=== PATIENT | male | born 1960 | race African-American/Black ===

== ENCOUNTER 2020-02-06 06:56 | Day surgery (SDC) | payer OTHER ==
[2020-02-02 09:32] VITALS: BMI 30.4
[~2020-02-06 06:56] MED LIST: BUPIVICAINE 0.25%/MORPH PF/KETOROLAC - 51ML DISP.SYRINGE IA ONE; GELATIN, ABSORBABLE 100 EACH SPONGE TP ONE; THROMBIN (BOVINE) 5,000 UNIT VIAL TP ONE
[2020-02-06] MEDS ORDERED: CELECOXIB 200 MG CAPSULE PO ONE (08:09)
[2020-02-06] MEDS ORDERED: ceFAZolin SODIUM 1 GM VIAL ONE (08:27)
[2020-02-06] MEDS ORDERED: THROMBIN (RECOMBINANT) 5,000 UNIT VIAL TP ONE (08:27)
[2020-02-06] MEDS ORDERED: MIDAZOLAM HCL 2 MG/2 ML SINGLE DOSE VIAL ONE ×2 (08:29→09:28)
[2020-02-06] MEDS ORDERED: SUCCINYLCHOLINE CHLORIDE 200 MG/10 ML SYRINGE ONE (08:53)
[2020-02-06] MEDS ORDERED: PROPOFOL 20 ML ONE (08:53)
[2020-02-06] MEDS ORDERED: EPHEDRINE SULFATE/0.9% NACL/PF 50 MG/10 ML SYRINGE NR ONE (08:53)
[2020-02-06] MEDS ORDERED: BUPIVACAINE LIPOSOME/PF (EXPAREL) 266 MG/20 ML VIAL ONE (09:15)
[2020-02-06] MEDS ORDERED: SODIUM CHLORIDE 0.9% P/F 10 ML VIAL IJ ONE (09:15)
[2020-02-06] MEDS ORDERED: BUPIVICAINE 0.25%/MORPH PF/KETOROLAC - 51ML DISP.SYRINGE IA ONE ×3 (09:23→10:10)
[2020-02-06] MEDS ORDERED: TRANEXAMIC ACID 1000 MG/10 ML VIAL IVPUSH ONE (09:30)
[2020-02-06] MEDS ORDERED: CEFAZOLIN 2 GM in DEXTROSE 5%-WATER - 50 ML IVPB ONE (09:30)
[2020-02-06] MEDS ORDERED: THROMBIN (BOVINE) 5,000 UNIT VIAL TP ONE (10:03)
[2020-02-06] MEDS ORDERED: GELATIN, ABSORBABLE 100 EACH SPONGE TP ONE (10:03)
[2020-02-06] MEDS ORDERED: MAG HYDROX/AL HYDROX/SIMETH 30 ML UNIT-DOSE CUP PO PRN (10:26)
[2020-02-06] MEDS ORDERED: ONDANSETRON 4 MG/2 ML VIAL IVPUSH PRN ×2 (10:26→10:45)
[2020-02-06] MEDS ORDERED: LACTATED RINGERS SOLUTION 1,000 ML IV SCH (10:30)
[2020-02-06] MEDS ORDERED: ACETAMINOPHEN 325 MG TABLET (FP) PO SCH (10:45)
[2020-02-06] MEDS ORDERED: oxyCODONE HCL 5 MG TABLET PO PRN (10:45)
[2020-02-06] MEDS: oxyCODONE HCL 5 MG TABLET PO PRN ×2 (16:08→22:30)
[2020-02-06] MEDS: CEFAZOLIN 2 GM/D5W 2 GM/50 ML ML IVPB SCH ×2 (16:08→23:39)
[2020-02-06] MEDS: ACETAMINOPHEN 325 MG TABLET (FP) PO SCH ×2 (18:39→23:40)
[2020-02-06] MEDS: oxyCODONE HCL 10 MG SUSTAINED ACTING TABLET PO SCH (21:14)
[2020-02-06] MEDS: SENNOSIDES/DOCUSATE COMBO (SENNA PLUS) TABLET (UD) PO SCH (21:15)
[2020-02-07] MEDS: oxyCODONE HCL 5 MG TABLET PO PRN (05:46)
[2020-02-07] MEDS: ACETAMINOPHEN 325 MG TABLET (FP) PO SCH ×2 (05:46→12:34)
[2020-02-07] MEDS ORDERED: ASPIRIN 325 MG TABLET PO SCH (08:00)
[2020-02-07 09:46] VITALS: TEMP 97.8
[2020-02-07] MEDS: oxyCODONE HCL 10 MG SUSTAINED ACTING TABLET PO SCH (09:47)
[2020-02-07] MEDS: SENNOSIDES/DOCUSATE COMBO (SENNA PLUS) TABLET (UD) PO SCH (09:47)
[2020-02-07] MEDS ORDERED: MULTIVITAMINS (DAILY MVI) TABLET (FP) PO SCH (10:00)
[2020-02-07] MEDS ORDERED: PANTOPRAZOLE 40 MG TABLET PO SCH (10:00)
[2020-02-07 13:08] VITALS: BP 126/68; PULSE 70
== END 2020-02-07 15:16 | disposition home health service (06) ==
LOC: FASUSAT 06:56 → FM/S 13:58 → FASUSAT 02-07 15:16
PROVIDERS: ATTEND Orthopaedic Surgery
PROC: 8E0YXBZ Computer Assisted Procedure of Lower Extremity (ICD-10-PCS; 2020-02-06)
PROC: 8E0Y0CZ Robotic Assisted Procedure of Lower Extremity, Open Approach (ICD-10-PCS; 2020-02-06)
PROC: 0SRC0L9 Replacement of Right Knee Joint with Medial Unicondylar Synthetic Substitute, Cemented, Open Approach (ICD-10-PCS; principal; 2020-02-06 09:14)
DX: M17.11 Unilateral primary osteoarthritis, right knee (principal)
CPT/HCPCS: 20985; 27446; C1776; S2900; 73560-TC-RT-FY; 94760; 97010-GP; 97116-GP; 97163-GP